=== PATIENT | male | born 1950 | race Caucasian/White ===

== ENCOUNTER 2022-12-15 14:42 | Inpatient (IN) ==
[2022-12-15] MEDS ORDERED: LIDOCAINE 1% 20 ML VIAL SQ ONE (14:43)
[2022-12-15] MEDS ORDERED: IOPAMIDOL 100 ML BOTTLE IV ONE (14:43)
[2022-12-15] MEDS ORDERED: ONDANSETRON 4 MG/2 ML VIAL IV ONE (14:54)
[2022-12-15] MEDS ORDERED: morphine 4 MG/ML VIAL IV ONE ×2 (14:54→16:03)
--- NOTE | 2022-12-15 15:05 | Emergency Department Note ---
Trauma HPI General Chief Complaint: Trauma Stated Complaint: Fall Time Seen by Provider: 12/15/22 14:47 Source: patient Mode of arrival: wheelchair Limitations: no limitations History of Present Illness HPI Narrative: Narrative: The patient presents after tripping and falling down approximately 3 steps. He said he struck the right side of his head on the carpet. He did not lose consciousness. He is not on blood thinners. He denies visual problems or vomiting. He denies weakness or numbness. He denies neck or back pain. He did strike the lower right side of his chest. He complains of right-sided chest wall pain and difficulty breathing. He denies any abdominal or extremity injury. He was in his normal state of health prior to the fall. He denies any presyncope. Related Data Home Medications Medication Instructions Recorded Confirmed amlodipine 10 mg tablet 10 mg PO QDAY 09/07/18 07/23/22 atorvastatin 20 mg tablet 20 mg PO QDAY 09/07/18 07/23/22 benazepril 10 mg tablet 10 mg PO HS 09/07/18 07/23/22 duloxetine 30 mg capsule,delayed 60 mg PO HS 03/29/20 07/23/22 release famotidine 20 mg tablet 20 mg PO DAILYP PRN Heartburn 03/29/20 07/23/22 metoprolol tartrate 50 mg tablet 50 mg PO BID 03/29/20 07/23/22 nortriptyline 75 mg capsule 75 mg PO HS 03/29/20 07/23/22 tamsulosin 0.4 mg capsule 0.4 mg PO DAILY 03/29/20 07/23/22 tramadol 50 mg tablet 50 mg PO TIDP PRN Pain 06/05/20 07/23/22 Previous Rx's Medication Instructions Recorded hydrocodone 5 mg-acetaminophen 325 1 tab PO Q8H PRN pain #10 tabs 07/24/22 mg tablet ondansetron 4 mg disintegrating 4 mg PO Q8H PRN nausea and 07/24/22 tablet vomiting #14 tabs hydrocodone 7.5 mg-acetaminophen 1 tab PO Q6H PRN pain #10 tabs 08/20/22 325 mg tablet metronidazole 500 mg tablet 500 mg PO TID #30 tabs 08/20/22 sulfamethoxazole 800 1 tab PO BID #20 tabs 10/12/22 mg-trimethoprim 160 mg tablet (Bactrim DS) ciprofloxacin HCl 500 mg tablet 500 mg PO BID #14 tabs 10/15/22 metronidazole 500 mg tablet 500 mg PO TID #21 tabs 10/15/22 Allergies Allergy/AdvReac Type Severity Reaction Status Date / Time Jkdlerp-ZOH-NjU Reductase AdvReac Mild Cramping Verified 08/20/22 07:42 Inhibitor of the [Kbgmkja-Jsd-Wnx Reductase Muscles Inhibitor] Review of Systems ROS ROS Narrative: Narrative: All systems ED: reviewed and negative except as stated. PFSH Narrative Patient History Narrative: Narrative: Medical/Surgical/Family History All Active Problems (Updated 12/15/22 @ 16:06 by Kaiden Shaw MD) Status post total hip replacement, right (Acute) Diverticulitis (Acute) Sigmoid diverticulitis (Acute) Pneumothorax on right (Acute) Fall (Acute) Closed head injury (Acute) Contusion of right chest wall (Acute) H/O inguinal hernia repair (Acute) H/O umbilical hernia repair (Acute) Hyperlipidemia (Acute) Hypertension (Acute) Testicular/scrotal pain (Acute) Right groin pain (Acute) Urinary hesitancy (Acute) Urinary frequency (Acute) Social History Smoking Status: Never smoker Alcohol Intake Frequency: 0-2 drinks per day Exam Narrative Narrative: Narrative: General Limitations: no limitations General appearance: Present alert; Absent in no apparent distress (Mild distress due to pain) Head Head: Absent atraumatic (Abrasion on the right parietal area) or normal inspection Eye Eye: Present normal appearance, PERRL and EOMI ENT ENT: Present normal exam (No intraoral trauma) and mucous membranes moist; Absent other (No nasal septal hematoma. No facial bone tenderness) Neck Neck: Present normal inspection, full ROM and trachea midline; Absent tenderness Chest Chest: Present normal inspection, symmetric chest wall rise and tenderness (Palpation of the right lower anterior chest wall does elicit discomfort) Respiratory Respiratory: Absent normal lung sounds bilaterally (Lung sounds are present on the right but diminished when compared to the left) or respiratory distress Cardiovascular Cardiovascular: Present regular rate, normal rhythm and other (+2 pulses all 4 extremities) Adbominal Abdominal: Present soft, tenderness (Mild tenderness in the right upper quadrant without rebound or guarding) and normal bowel sounds; Absent distention, guarding or rebound Extremities Extremities: Present normal inspection and full ROM; Absent tenderness Back Back: Present full ROM; Absent tenderness (No T or L-spine point tenderness), CVA tenderness (R) or CVA tenderness (L) Neurological Neurological: Present alert, oriented X3, CN II-XII intact and other (GCS 15); Absent motor sensory deficit Psychiatric Psychiatric: Present normal affect and normal mood Skin Skin: Present warm (WNL), dry and other (Abrasion as mentioned above) Course Consultations Consultation #1: I spoke to the general surgeon, Dr. Guo. He asked me to ask radiology if they could place a small catheter as opposed as placing a large chest tube. Time: 15:55 Consultation #2: I spoke to Dr. Neves, the radiologist. He is amenable to placing a small catheter. Time: 16:00 Vital Signs Vital signs: Vital Signs Temperature 98.0 F 12/15/22 14:43 Pulse Rate 72 12/15/22 14:43 Respiratory Rate 16 12/15/22 14:43 Blood Pressure 133/96 12/15/22 14:43 Pulse Oximetry (%) 100 12/15/22 14:43 Oxygen Delivery Method Room Air 12/15/22 14:43 Temperature 98.0 F 12/15/22 14:43 Pulse Rate 75 12/15/22 16:46 Respiratory Rate 19 12/15/22 16:46 Blood Pressure 110/78 12/15/22 16:46 Pulse Oximetry (%) 98 12/15/22 16:46 Oxygen Delivery Method Nasal Cannula 12/15/22 15:34 Oxygen Flow Rate (L/min) 2 12/15/22 15:34 [facility] Narrative Medical decision making narrative: Narrative: The patient presents after mechanical fall in which he struck his head and injured the right side of his chest/abdomen. Concern with the diminished breath sounds on the right is the possibility of a traumatic pneumothorax. Patient is satting at 98 to 100% on room air while I am in the room. He does appear to be in moderate distress due to the pain. Plan to image the head, cervical spine, chest abdomen pelvis. We will obtain appropriate trauma labs and medicate for pain. Bedside E-FAST performed by myself showed no pericardial effusion, no free fluid in the abdomen, but a concern of a possible right-sided pneumothorax with no adequate lung sliding appreciated when compared to the left Lab Data Labs: Lab Results 12/15/22 12/15/22 12/15/22 Range/Units 15:00 15:00 15:00 POC Hct (41-55) PT 13.3 (11.9-14.5) sec INR 1.0 (0.9-1.1) APTT 31.6 (20.0-37.0) sec POC Sodium (133-145) POC Potassium (3.3-5.1) POC Chloride (96-108) POC Total CO2 (22-30) POC BUN (6-20) POC Creatinine (0.6-1.2) POC Glucose (70-105) POC WB Ioniz Calcium (1.16-1.32) Total Bilirubin 0.6 (0.1-1.0) mg/dL Direct Bilirubin < 0.2 (0-0.3) mg/dL AST 27 (<40) U/L ALT 24 (<40) U/L Alkaline Phosphatase 60 (39-117) U/L Total Protein 6.7 (5.9-8.4) gm/dL Albumin 4.5 (3.2-5.2) gm/dL Globulin 2.2 (2.2-3.7) gm/dL Lipase 17 (7-60) U/L Ethyl Alcohol mg/dL < 10.0 mg/dL Ethyl Alcohol g/dL < 0.010 (<0.010) gm/dL 12/15/22 Range/Units 15:03 POC Hct 42.0 (41-55) PT (11.9-14.5) sec INR (0.9-1.1) APTT (20.0-37.0) sec POC Sodium 137 (133-145) POC Potassium 4.9 (3.3-5.1) POC Chloride 101 (96-108) POC Total CO2 28.0 (22-30) POC BUN 15 (6-20) POC Creatinine 1.3 H (0.6-1.2) POC Glucose 105 (70-105) POC WB Ioniz Calcium 1.09 L (1.16-1.32) Total Bilirubin (0.1-1.0) mg/dL Direct Bilirubin (0-0.3) mg/dL AST (<40) U/L ALT (<40) U/L Alkaline Phosphatase (39-117) U/L Total Protein (5.9-8.4) gm/dL Albumin (3.2-5.2) gm/dL Globulin (2.2-3.7) gm/dL Lipase (7-60) U/L Ethyl Alcohol mg/dL mg/dL Ethyl Alcohol g/dL (<0.010) gm/dL Discharge Plan Patient/Caregiver Discharge Instructions Pt seen by RESOURCE SPECIALIST TEACHER/PA only: No Clinical Impression: Pneumothorax on right Fall Qualifiers: Encounter type: initial encounter Qualified Code(s): W19.XXXA - Unspecified fall, initial encounter Closed head injury Qualifiers: Encounter type: initial encounter Qualified Code(s): S09.90XA - Unspecified injury of head, initial encounter Contusion of right chest wall Qualifiers: Encounter type: initial encounter Qualified Code(s): S20.211A - Contusion of right front wall of thorax, initial encounter Patient Disposition: Xfer As Inpt ([facility]) Condition: Fair Follow up with: Jg Casiano MD [Primary Care Provider] - Prescriptions: No Action amlodipine 10 mg tablet 10 mg PO QDAY benazepril 10 mg tablet 10 mg PO HS atorvastatin 20 mg tablet 20 mg PO QDAY famotidine 20 MG tablet 20 mg PO DAILYP PRN (Reason: Heartburn) tamsulosin 0.4 MG capsule 0.4 mg PO DAILY nortriptyline 75 MG capsule 75 mg PO HS metoprolol tartrate 50 MG tablet 50 mg PO BID duloxetine 30 MG capsule 60 mg PO HS tramadol 50 mg Tablet 50 mg PO TIDP PRN (Reason: Pain) hydrocodone-acetaminophen 5-325 mg tablet 1 tab PO Q8H PRN (Reason: pain) Qty: 10 0RF ondansetron 4 mg tablet,disintegrating 4 mg PO Q8H PRN (Reason: nausea and vomiting) Qty: 14 0RF sulfamethoxazole-trimethoprim [Bactrim DS] 800-160 mg tablet 1 tab PO BID Qty: 20 0RF metronidazole 500 mg tablet 500 mg PO TID Qty: 30 0RF hydrocodone-acetaminophen 7.5-325 mg tablet 1 tab PO Q6H PRN (Reason: pain) Qty: 10 0RF Rx Instructions: 1 p.o. q 4-6 prn pain metronidazole 500 mg tablet 500 mg PO TID Qty: 21 0RF ciprofloxacin HCl 500 mg tablet 500 mg PO BID Qty: 14 0RF
[2022-12-15 15:06] LABS: POC Calcium, Ionized 1.09 (1.16-1.32); POC Creatinine 1.3 (0.6-1.2); POC Potassium 4.9 (3.3-5.1)
--- NOTE | 2022-12-15 15:35 | Cat Scan Report ---
INDICATION: fALL COMPARISON: Previous CT scan dated 04/21/2012 TECHNIQUE: Axial thin section images through the cervical spine. Sagittally and coronally reformatted images. The exam was performed using radiation dose optimization techniques including, but not limited to, automated exposure control, adjustment of the mA and/or kV according to patient size and use of iterative reconstruction technique. FINDINGS: Vertebral bodies, spinous processes:This patient has a history of Jamal fracture. There is a fracture of the anterior C1 ring, to the right of midline. Right lamina is also fractured. Patient has undergone previous posterior spinal fusion at C1-2 with bilateral wires. These wires are intact. 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 No acute cervical spine fracture. Cervical vertebral bodies are otherwise negative. Spinous processes are negative. There is a wedging deformity of the C5 vertebral body with mild reversal of normal cervical lordosis. This is essentially unchanged. Odontoid process is intact. No atlantoaxial subluxation Facets:No perched or locked facet. No facet complex fracture. Disc spaces:There is severe degenerative disc disease at C3-4, C4-5, C5-6, C6-7. Temporal bones:No basilar skull fracture. There is sclerosis of the left mastoid sinuses consistent with chronic sinusitis Cervical soft tissues:Negative. No prevertebral soft tissue swelling. No focal soft tissue mass or acute abnormality Lung apices:Small right apical pneumothorax. Chest CT scan is pending IMPRESSION: 1. Ununited Jamal fracture, unchanged since 04/21/2012. Interval posterior spinal fusion 2. Severe multilevel degenerative disc disease. Multilevel degenerative facet arthropathy 3. No acute cervical spine fracture 4. Small right apical pneumothorax, chest CT scan is pending Interpreted and Authenticated by: Dev Neves 12/15/22
--- NOTE | 2022-12-15 15:37 | Cat Scan Report ---
INDICATION: fall COMPARISON: Previous brain CT scan dated 04/21/2012 TECHNIQUE: Axial noncontrast-enhanced images through the brain. Sagittally and coronally reformatted images. FINDINGS: Cerebral hemispheres:Negative. No intra-axial abnormality. No intra-axial hematoma. No localized mass effect.Brain volume is within normal limits for age. Periventricular white matter is negative without significant attenuation abnormality. Brainstem and cerebellum:No intra-axial abnormality Extra-axial:No acute hemorrhage. No subdural or epidural hematoma. No subarachnoid hemorrhage. Basilar cisterns are normal Calvarial:No calvarial fracture. No lytic lesion Temporal bones are negative. There is sclerosis of the left mastoid sinuses consistent with chronic sinusitis Soft tissue, orbits, sinuses:Orbits and visualized facial soft tissues and paranasal sinuses are negative IMPRESSION: 1. No acute intracranial hemorrhage 2. No interval change since 04/21/2012 The exam was performed using radiation dose optimization techniques including, but not limited to, automated exposure control, adjustment of the mA and/or kV according to patient size and use of iterative reconstruction technique. Interpreted and Authenticated by: Dev Neves 12/15/22
--- NOTE | 2022-12-15 15:52 | Cat Scan Report ---
INDICATION: fall COMPARISON: Previous abdominal and pelvic CT scan dated 10/15/2022, 08/20/2022 TECHNIQUE: Axial images were obtained through the chest,abdomen and pelvis. Sagittally and coronally reformatted images. 80ml Isovue 370 injected intravenously. FINDINGS: Chest CT: Lungs:There is a moderate right pneumothorax. No right pulmonary parenchymal mass or consolidation identified. There is mild density most consistent with volume loss. Left lung is negative. No pulmonary parenchymal consolidation or contusion. Mediastinum:No pathologic mediastinal adenopathy. No hilar mass. Thoracic aorta is normal without aneurysmal dilatation Heart:No significant cardiomegaly. No pericardial effusion Pleura:There is a moderate right pneumothorax. There is no significant hemothorax Axilla, supraclavicular regions, chest wall:No pathologic axillary or supraclavicular adenopathy Musculoskeletal:No detectable acute rib fractures. There is no right rib fractures identified. There are nonacute healed left rib fractures. Thoracic spine is negative. Sternum is negative. Patient has undergone previous bilateral reverse shoulder arthroplasty Abdomen/Pelvis: Liver:Negative liver. No focal intrahepatic mass. Liver contour is smooth. There is no ascites. No hepatic laceration. No perihepatic hemorrhage Gallbladder, bilary:No calcified gallstones. No gallbladder wall thickening or pericholecystic fluid. No dilated bile ducts Spleen:No splenic injury. No perisplenic hemorrhage. No focal abnormality Pancreas:No pancreatic mass. No peripancreatic abnormality Adrenal glands:Negative Kidneys,ureters,bladder:No perinephric hemorrhage. No evidence for renal injury. No solid or cystic mass. There is no hydronephrosis No hydroureter. No ureteral calculus. No bladder stone. No detectable bladder mass. There is no rupture bladder. Gastrointestinal:No detectable colonic mass. There is prominent sigmoid diverticulosis without evidence for diverticulitis. Negative small bowel. No mechanical small bowel obstruction. No bowel wall thickening. No focal abnormality. Negative stomach and duodenum. No focal abnormality. Appendix: The appendix is not well visualized. No evidence for appendicitis Vascular:There is calcification of the abdominal aorta. No abdominal aortic aneurysm. Origins of the celiac trunk and superior mesenteric artery are negative. Lymphatic:No pathologic retroperitoneal or mesenteric adenopathy Mesentery, peritoneum:No free intraperitoneal fluid. No intra-abdominal abscess. No hemoperitoneum or pneumoperitoneum Reproductive:Prostate is not well visualized due to beam hardening artifact from bilateral prosthetic hips Musculoskeletal:No lumbar compression fractures. There is multilevel degenerative disc disease. Transverse processes are negative. Sacrum and pelvis are negative. Bilateral total hip arthroplasty There is no anterior abdominal wall or inguinal hernia IMPRESSION: 1. Moderate right pneumothorax. No right rib fracture identified 2. No significant hemothorax 3. No intra-abdominal solid organ injury. No hemoperitoneum or pneumoperitoneum 4. Nonacute healed left rib fractures 5. Bilateral reverse shoulder arthroplasty. Bilateral total hip arthroplasty 6. Multilevel degenerative disc disease. No acute fracture The exam was performed using radiation dose optimization techniques including, but not limited to, automated exposure control, adjustment of the mA and/or kV according to patient size and use of iterative reconstruction technique. Interpreted and Authenticated by: Dev Neves 12/15/22
[2022-12-15 16:09] LABS: Partial Thromboplastin Time 31.6 sec (20.0-37.0); Prothrombin Time 13.3 sec (11.9-14.5)
[2022-12-15 16:19] LABS: Alcohol, Blood < 10.0 mg/dL; Alcohol,Blood < 0.010 gm/dL (<0.010)
[2022-12-15 16:23] LABS: ALT/SGPT 24 U/L (<40); AST/SGOT 27 U/L (<40); Albumin 4.5 gm/dL (3.2-5.2); Alkaline Phosphatase 60 U/L (39-117); Bilirubin,Direct < 0.2 mg/dL (0-0.3); Bilirubin,Total 0.6 mg/dL (0.1-1.0); Globulin 2.2 gm/dL (2.2-3.7)
--- NOTE | 2022-12-15 17:55 | XRay Report ---
INDICATION: POST CHEST TUBE TECHNIQUE: Informed consent was obtained. Discussed the procedure as well as potential risks and complications including risk of bleeding and infection. The right anterior interspace at T2-3 was localized. Routine Betadine skin cleansing. 1% lidocaine injected subcutaneously and deep. A 5 Trinid[place] pigtail catheter was placed within the pleural space. Pneumothorax was manually evacuated. Catheter was affixed to the skin with a suture and a Heimlich valve was attached. Postprocedure chest x-ray demonstrates no definite pneumothorax. Patient will be admitted. We will evaluate the patient tomorrow and may remove the chest tube if appropriate. COMPARISON: Chest CT scan dated 12/15/2021 FINDINGS: Postprocedure chest x-ray demonstrates the pigtail catheter tip directed toward the apex. There is no demonstrable pneumothorax on upright PA and lateral chest x-ray. IMPRESSION: 1. Fluoroscopic guided small-caliber chest tube placement 2. No pneumothorax identified on postprocedure chest x-ray Interpreted and Authenticated by: Dev Nvees 12/15/22
[2022-12-15] MEDS ORDERED: morphine 4 MG/ML VIAL IV PRN (17:57)
[2022-12-15] MEDS ORDERED: 0.9 % SODIUM CHLORIDE 1,000 ML IV ONE (17:57)
[2022-12-15] MEDS ORDERED: ONDANSETRON 4 MG/2 ML VIAL IV PRN (17:57)
--- NOTE | 2022-12-15 18:45 | General Surg History&Physical ---
HPI History of Present Illness Patient information: Note initiated : 12/15/22 at 6:45 pm Service Date, if different from initiated Date: [] Patient: Adria Melgar 72 y/o M admitted on for Fall. Chief Complaint: [] History of present illness: Mr. Melgar is a 72 year old M [facility] All Active Problems (Updated 12/15/22 @ 16:06 by Kaiden Shaw MD) Status post total hip replacement, right (Acute) Diverticulitis (Acute) Sigmoid diverticulitis (Acute) Pneumothorax on right (Acute) Fall (Acute) Closed head injury (Acute) Contusion of right chest wall (Acute) H/O inguinal hernia repair (Acute) H/O umbilical hernia repair (Acute) Hyperlipidemia (Acute) Hypertension (Acute) Testicular/scrotal pain (Acute) Right groin pain (Acute) Urinary hesitancy (Acute) Urinary frequency (Acute) Social History (Updated 09/09/18 @ 08:57 by Marilu Alex DO) smoking status: Never smoker alcohol intake frequency: 0-2 drinks per day MEDS/ALLERGIES Home Medications and Allergies Home Medications Medication Instructions Recorded Confirmed Type amlodipine 10 mg tablet 10 mg PO QDAY 09/07/18 07/23/22 History atorvastatin 20 mg tablet 20 mg PO QDAY 09/07/18 07/23/22 History benazepril 10 mg tablet 10 mg PO HS 09/07/18 07/23/22 History duloxetine 30 mg capsule,delayed 60 mg PO HS 03/29/20 07/23/22 History release famotidine 20 mg tablet 20 mg PO DAILYP PRN Heartburn 03/29/20 07/23/22 History metoprolol tartrate 50 mg tablet 50 mg PO BID 03/29/20 07/23/22 History nortriptyline 75 mg capsule 75 mg PO HS 03/29/20 07/23/22 History tamsulosin 0.4 mg capsule 0.4 mg PO DAILY 03/29/20 07/23/22 History tramadol 50 mg tablet 50 mg PO TIDP PRN Pain 06/05/20 07/23/22 History hydrocodone 5 mg-acetaminophen 325 1 tab PO Q8H PRN pain #10 tabs 07/24/22 Rx mg tablet ondansetron 4 mg disintegrating 4 mg PO Q8H PRN nausea and 07/24/22 Rx tablet vomiting #14 tabs hydrocodone 7.5 mg-acetaminophen 1 tab PO Q6H PRN pain #10 tabs 08/20/22 Rx 325 mg tablet metronidazole 500 mg tablet 500 mg PO TID #30 tabs 08/20/22 Rx sulfamethoxazole 800 1 tab PO BID #20 tabs 08/20/22 Rx mg-trimethoprim 160 mg tablet (Bactrim DS) ciprofloxacin HCl 500 mg tablet 500 mg PO BID #14 tabs 10/15/22 Rx metronidazole 500 mg tablet 500 mg PO TID #21 tabs 10/15/22 Rx Allergies Allergy/AdvReac Type Severity Reaction Status Date / Time Aijqgek-SKK-ZbU Reductase AdvReac Mild Cramping Verified 08/20/22 07:42 Inhibitor of the [Xkauaqn-Cjs-Adp Reductase Muscles Inhibitor] Physical Examination Vital Signs Vital signs: Temp Pulse Resp BP Pulse Ox O2 Del Method O2 Flow Rate 98.0 F 88 28 H 107/72 98 Nasal Cannula 2 12/15/22 14:43 12/15/22 18:25 12/15/22 18:25 12/15/22 18:16 12/15/22 18:25 12/15/22 15:34 12/15/22 15:34 Results Labs Labs: Abnormal lab results 12/15/22 Range/Units 15:03 POC Creatinine 1.3 H (0.6-1.2) POC WB Ioniz Calcium 1.09 L (1.16-1.32) Diabetes panel 12/15/22 Range/Units 15:00 AST 27 (<40) U/L ALT 24 (<40) U/L Alkaline Phosphatase 60 (39-117) U/L Total Protein 6.7 (5.9-8.4) gm/dL Albumin 4.5 (3.2-5.2) gm/dL Calcium panel 12/15/22 Range/Units 15:00 Albumin 4.5 (3.2-5.2) gm/dL Adrenal panel 12/15/22 Range/Units 15:00 Total Bilirubin 0.6 (0.1-1.0) mg/dL AST 27 (<40) U/L ALT 24 (<40) U/L Alkaline Phosphatase 60 (39-117) U/L Total Protein 6.7 (5.9-8.4) gm/dL Albumin 4.5 (3.2-5.2) gm/dL All other labs normal. A/P Time Spent With Patient Time: Total time spent is greater than 50% in coordination of care (as documented) at patient's floor/unit and/or counseling patient:
[2022-12-15] MEDS ORDERED: HYDROmorphone 1 MG/ML SYRINGE IV ONE (19:04)
[2022-12-15] MEDS: ACETAMINOPHEN 1,000 MG/100 ML BAG IV SCH (19:34)
[2022-12-15] MEDS ORDERED: FAMOTIDINE 20 MG TABLET PO PRN (20:32)
[2022-12-15] MEDS ORDERED: BENAZEPRIL 10 MG TABLET PO SCH (21:00)
[2022-12-15] MEDS ORDERED: DULoxetine 30 MG CAPSULE PO SCH (21:00)
[2022-12-15] MEDS ORDERED: NORTRIPTYLINE 75 MG PO SCH (21:00)
[2022-12-15] MEDS: HYDROmorphone 1 MG/ML SYRINGE IV PRN ×2 (21:20→22:48)
--- NOTE | 2022-12-15 21:38 | XRay Report ---
INDICATION: f/u pneumothorax TECHNIQUE: AP portable upright chest x-ray COMPARISON: Previous post chest tube chest x-ray dated 12/15/2022 FINDINGS: Small-caliber right-sided chest tube is unchanged. There is no pneumothorax identified. IMPRESSION: 1. No right pneumothorax identified 2. No interval change Interpreted and Authenticated by: Dev Neves 12/15/22
[2022-12-15 21:39] LABS: Amphetamine Screen,Urine None detected; Barbiturate Screen,Urine None detected; Benzodiazepines Screen,Urine None detected; Cannabinoid Screen,Urine None detected; Cocaine Screen,Urine None detected; Opiate Screen,Urine Suspect Positive; Oxycodone, Urine Screen None detected; Phencyclidine Screen,Urine None detected
[2022-12-16] MEDS: HYDROmorphone 1 MG/ML SYRINGE IV PRN ×6 (03:03→19:41)
[2022-12-16] MEDS: ACETAMINOPHEN 1,000 MG/100 ML BAG IV SCH ×3 (03:13→12:18)
--- NOTE | 2022-12-16 06:05 | XRay Report ---
INDICATION: f/u pneumothorax TECHNIQUE: AP portable semiupright chest x-ray COMPARISON: Previous chest x-ray dated 12/15/2022 FINDINGS: No change in position a small caliber right sided chest tube. No detectable right pneumothorax. There is a rounded density at the right lung base. CT scan demonstrates a fat-containing abnormality at the left costophrenic angle. Appearance is consistent with herniated mesenteric fat. This is considered benign. There are healed left-sided rib fractures. No detectable right rib fracture. IMPRESSION: 1. No change in small caliber right sided chest tube. No detectable pneumothorax 2. No acute abnormality Interpreted and Authenticated by: Dev Neves 12/16/22
[2022-12-16] MEDS ORDERED: amLODIPine 10 MG TABLET PO SCH (09:00)
[2022-12-16] MEDS ORDERED: TAMSULOSIN 0.4 MG CAPSULE PO SCH (09:00)
--- NOTE | 2022-12-16 13:38 | General Surgery Progress Note ---
SUBJECTIVE Subjective Patient information: Note initiated : 12/16/22 at 1:32 pm Service Date, if different from initiated Date: [] Patient: Adria Melgar 72 y/o M admitted on 12/15/22 for Fall. Chief Complaint: [] Principal diagnosis: Traumatic right pneumothorax Interval history: Patient states that he feels better but he has moderate severe pain. He has significant pleuritic type chest pain. He denies shortness of breath. He does not complain of headache and he does not complain of soreness elsewhere in his body. He does not have any new bruises. Chest x-ray shows full expansion of his lung without any infiltrate. Constitutional Vitals: Vital Signs Temp Pulse Resp BP Pulse Ox O2 Del Method O2 Flow Rate 97.4 F 65 20 117/62 96 Room Air 2 12/16/22 13:15 12/16/22 13:15 12/16/22 13:15 12/16/22 13:15 12/16/22 13:15 12/16/22 13:15 12/15/22 15:34 Period Temp Pulse Resp BP Sys/Fowler Pulse Ox O2 Del Method O2 Flow Rate Last 24 Hr 97.4 F-98.2 F 61-88 10-28 89-133/62-97 85-100 Nasal Cannula- Room Air 2 Intake and Output 12/16/22 12/16/22 12/16/22 03:59 11:59 19:59 Intake Total 1252 1400 100 Output Total 325 1075 300 Balance 927 325 -200 Weight 185 lb 14.4 oz Intake & Output: Intake & Output 12/16/22 12/16/22 12/16/22 03:59 11:59 19:59 Intake Total 1252 1400 100 Output Total 325 1075 300 Balance 927 325 -200 Weight 185 lb 14.4 oz Intake: IV 1027 200 100 Sodium Chloride 0.9% 1,000 ml @ 927 100 mls/hr IV .Q10H ONE Rx#: [id number] Oral 225 1200 Output: Void Amount 325 1075 300 Other: Meal Breakfast Percent of Meal Consumed 100% Urine Appearance Clear Clear Clear Urine Color Yellow Yellow Bright Yellow Urine Odor Normal Normal Head Head exam: Present normocephalic Additional comments: Area of bruising on the right forehead is unchanged; there is no hematoma or increased ecchymosis Eye Additional comments: Pupils are equal and reactive bilaterally ENT Additional comments: No drainage from ears Neck Neck exam: Present full ROM and normal inspection Respiratory Additional comments: Discomfort with deep breathing but excellent breath sounds bilaterally throughou t all lung andersen; no pleural rub Cardiovascular Cardiovascular exam: Present normal rate and rhythm, RRR, +S1 and +S2; Absent JVD or rubs GI/Abdominal GI/Abdominal exam: Present normal bowel sounds and soft; Absent distended or tenderness Extremities Exam Extremities exam: Present full ROM, normal inspection and neurovascular intact; Absent calf tenderness or tenderness Back Exam Back exam: Present normal inspection; Absent CVA tenderness (L), CVA tenderness (R) or muscle spasm Neurological Exam Neurological exam: Present normal gait and oriented X3; Absent motor sensory deficit Psychiatric Psychiatric exam: Present normal affect and normal mood A/P Assessment and plan (1) Pneumothorax on right: Status: Acute (2) Closed head injury: Status: Acute Qualifiers: Encounter type: initial encounter Qualified Code(s): S09.90XA - Unspecified injury of head, initial encounter (3) Contusion of right chest wall: Status: Acute Qualifiers: Encounter type: initial encounter Qualified Code(s): S20.211A - Contusion of right front wall of thorax, initial encounter Plan Increase activity off oxygen Check post exercise oxygen saturations Follow-up chest x-ray today Probable discharge home tomorrow if he remains stable Sepsis Sepsis Identified: No Time Spent With Patient Time: Total time spent is greater than 50% in coordination of care (as documented) at patient's floor/unit and/or counseling patient:
[2022-12-16] MEDS ORDERED: oxyCODONE HCL 5 MG TABLET PO PRN (13:47)
[2022-12-16] MEDS ORDERED: ONDANSETRON 4 MG/2 ML VIAL IV PRN (14:56)
[2022-12-16] MEDS: oxyCODONE HCL 5 MG TABLET PO PRN ×2 (18:07→21:57)
[2022-12-16] MEDS ORDERED: NORTRIPTYLINE 25 MG CAPSULE PO SCH ×2 (21:00)
[2022-12-16] MEDS ORDERED: LISINOPRIL 10 MG TABLET PO SCH (21:00)
[2022-12-16] MEDS ORDERED: LISINOPRIL 10 MG TABLET ONE (21:01)
[2022-12-16] MEDS: METOPROLOL TARTRATE 50 MG TABLET PO SCH (21:04)
[2022-12-16] MEDS: ACETAMINOPHEN 1,000 MG/100 ML BAG IV PRN (23:59)
[2022-12-17] MEDS: oxyCODONE HCL 5 MG TABLET PO PRN ×3 (03:48→15:50)
--- NOTE | 2022-12-17 06:28 | XRay Report ---
INDICATION: Follow-up right pneumothorax TECHNIQUE: AP portable semiupright chest x-ray COMPARISON: Previous chest x-rays dated 12/16/2022, 12/15/2022 FINDINGS: No change in position of small caliber right-sided chest tube. There is no detectable residual or recurrent right pneumothorax. The stopcock and obtain a follow-up chest x-ray in 1 hour. If the pneumothorax is not recurred the chest tube can be pulled. IMPRESSION: No change in small caliber right-sided chest tube position. No detectable right pneumothorax Interpreted and Authenticated by: Dev Neves 12/17/22
[2022-12-17] MEDS: ACETAMINOPHEN 1,000 MG/100 ML BAG IV PRN (07:44)
--- NOTE | 2022-12-17 08:02 | XRay Report ---
INDICATION: DO AT 0730 TECHNIQUE: AP portable upright chest x-ray COMPARISON: Multiple previous chest x-rays FINDINGS: The chest tube has been turned off for 1 hour. No evidence for recurrent right pneumothorax. Right-sided chest tube will be removed IMPRESSION: No recurrent pneumothorax demonstrated Interpreted and Authenticated by: Dev Neves 12/17/22
[2022-12-17] MEDS ORDERED: LIDOCAINE 1% IJ ONE (08:26)
[2022-12-17] MEDS ORDERED: amLODIPine 10 MG TABLET PO SCH (09:00)
[2022-12-17] MEDS ORDERED: TAMSULOSIN 0.4 MG CAPSULE PO SCH (09:00)
[2022-12-17] MEDS ORDERED: FAMOTIDINE 20 MG TABLET PO SCH (09:00)
[2022-12-17] MEDS ORDERED: buPROPion 150 MG TAB.XL.24H PO SCH (09:00)
[2022-12-17] MEDS ORDERED: DULoxetine 30 MG CAPSULE PO SCH (09:00)
[2022-12-17] MEDS: METOPROLOL TARTRATE 50 MG TABLET PO SCH (09:47)
[2022-12-17] MEDS ORDERED: FLU VACC QS2022-23(6MOS UP)/PF 60 MCG/0.5 ML SYRINGE IM ONE (10:00)
[2022-12-17] MEDS ORDERED: MAGNESIUM HYDROXIDE 30 ML ORAL.SUSP PO PRN (11:02)
[2022-12-17] MEDS: HYDROmorphone 1 MG/ML SYRINGE IV PRN (12:14)
--- NOTE | 2022-12-17 15:54 | Discharge Summary ---
Discharge Provider Provider IMPORTANT FOLLOW-UP INFORMATION FOR PCP: Patient information: Note initiated : 12/17/22 at 3:53 pm Service Date, if different from initiated Date: [] Patient: Adria Melgar 72 y/o M admitted on 12/15/22 for Fall. Chief Complaint: [] Date of admission: 12/15/22 19:59 Discharge date: 12/17/22 Primary care physician: Jg Casiano Admitting clinician: Dev Guo Attending physician on admission: Dev Guo Consults: 12/15/22 15:56 Consult to Physician [CONS] Stat Comment: Consulting Provider: Dev Guo Reason For Exam: Physician to Consult Attending physician on discharge: Dev Guo Discharging clinician: Dev Guo COURSE Hospital Course Hospital course: 72-year-old male who fell down his steps at home on the day of admission. He bumped his right chest and flank on a stairwell and his head hit the carpeted floor. He did not lose consciousness. He does complain of some tenderness of his left leg he has some pleuritic chest pain and shortness of breath. He had CT of the head which was unremarkable. Chest x-ray showed traumatic pneumothorax without evidence of rib fracture. Other bony changes noted unremarkable. Neck films were normal. Patient had a small Pleurx catheter placed by radiology and it was placed to a flutter valve. He has done well and his x-ray has been fully expanded over the past 2 days. The catheter was turned off earlier this morning and follow-up chest x-ray showed no evidence of pneumothorax so the catheter was removed. He has done well in the interim and though he had some pleuritic pain he has good breath sounds bilaterally. Patient is stable for discharge home. Discharge diagnosis: Right traumatic pneumothorax Secondary discharge diagnosis: Closed head trauma without concussion Soft tissue trauma without fracture Reason for admission: Pneumothorax and chest pain Procedures: None Pertinent studies/significant findings: None Complications: None Time Spent with Patient Time attestation: Total time spent providing and/or coordinating discharge services: Time spent: Less than 30 minutes Physical Examination Vital Signs Vital signs: Temp Pulse Resp BP Pulse Ox O2 Del Method O2 Flow Rate 97.9 F 62 20 128/82 97 Room Air 2 12/17/22 12:00 12/17/22 12:00 12/17/22 12:12/17/22 12:00 12/17/22 12:00 12/17/22 12:00 12/15/22 15:34 General physical appearance General physical exam: well developed, well nourished, moderate distress and moderate pain (Primarily of right-sided chest pain) Eyes Eye exam: PERRL and normal ocular movement ENT ENT exam: normal mucosa, no hearing loss and no congestion Head Head exam IM: Present atraumatic, normal inspection and normocephalic Neck Neck exam: no masses, no bruits, trachea midline, no lymphadenopathy and no venous distension Cardiovascular Cardiovascular exam IM: Present normal rate and rhythm, RRR, +S1 and +S2; Absent JVD Respiratory Respiratory exam: normal expansion (Splinting right chest with decreased breath sounds ) and clear to auscultation Abdomen Abdomen: Present soft and non tender Integumentary Integumentary: Present no rash, no growths and no abnormal pigmentation Neurologic Neurologic: Present normal coordination and normal sensation Musculoskeletal Musculoskeletal: Present normal gait and normal posture Psychiatric Psychiatric: Present oriented to time, oriented to person, oriented to place, speech is normal and memory intact Discharge Plan Patient/Caregiver Discharge Instructions Activity: increase activity as tolerated Diet: Regular Diet Instructions: Hydrocodone/Acetaminophen (By mouth), Methocarbamol (By mouth), Traumatic Pneumothorax (DC) Activity Restrictions/Additional Instructions: Get a chest X-Ray on January 13, please take the prescription with you. Increase activity as tolerated. May resume regular diet as tolerated. This discharge packet is provided to you to help keep you informed about your care. We want to ensure you get everything you need when you go home. You will also be receiving a call from us in a few days to follow up with you and see how you are doing since your discharge. This gives us a chance to listen to any concerns you maybe experiencing since you were discharged or any additional needs you may have, as well as providing us feedback on your care experience. We strive to always provide excellent care and thank you for your feedback and for choosing [facility]. Prescriptions: New hydrocodone-acetaminophen 10-325 mg tablet 1 tab PO Q4H PRN (Reason: Pain) Qty: 40 0RF methocarbamol 750 mg tablet 750 mg PO Q6HP PRN (Reason: Muscle Spasm) Qty: 90 0RF No Action amlodipine 10 mg tablet 10 mg PO QDAY benazepril 10 mg tablet 10 mg PO HS atorvastatin 20 mg tablet 20 mg PO HS famotidine 20 MG tablet 20 mg PO DAILYP PRN (Reason: Heartburn) tamsulosin 0.4 MG capsule 0.4 mg PO DAILY nortriptyline 75 MG capsule 75 mg PO HS metoprolol tartrate 50 MG tablet 50 mg PO BID duloxetine 30 MG capsule 60 mg PO HS tramadol 50 mg Tablet 50 mg PO TIDP PRN (Reason: Pain) bupropion HCl 300 mg tablet extended release 24 hr 300 mg PO QDAY Other Ambulatory Orders: XR chest 1V (Routine) Timeframe: 2 Weeks Facility: [facility] - Location: Radiology Ordered By: Dev Guo Prescription drug monitoring program results: PDMP not reviewed Follow Up Plan Follow up with: Jg Casiano MD [Primary Care Provider] - 12/22/22 (Keep your scheduled ap pointment.) Dev Guo MD [Physician] - 01/15/23 1:45 pm Patient Disposition: Home, Self-Care Prognosis: Good Rehab Potential: Serious I certify that the patient requires SNF services: No Overall status at discharge: patient is progressing back to baseline Discharge Orders: Discharge Order (Routine); Ordered 12/17/22 Ordered By: Dev Guo Pending Pending Pending: Resuscitation Status Resuscitate (Full Code) Diet Regular Diet Start ThuDec 16 1622 Amlodipine Besylate (Amlodipine 10 Mg Tablet) 10 mg PO DAILY [facility] Last Admin: 12/17/22 09:48 Dose: 10 mg Documented By: JERZY Bupropion HCl (Bupropion 150 Mg Tab.Xl.24h) 300 mg PO DAILY [facility] Last Admin: 12/17/22 09:47 Dose: 300 mg Documented By: JERZY Duloxetine HCl (Duloxetine 30 Mg Capsule) 60 mg PO DAILY [facility] Last Admin: 12/17/22 09:47 Dose: 60 mg Documented By: JERZY Famotidine (Famotidine 20 Mg Tablet) 20 mg PO DAILY [facility] Last Admin: 12/17/22 09:48 Dose: 20 mg Documented By: JERZY Hydromorphone HCl (Hydromorphone 1 Mg/Ml Syringe) 1 mg IV Q2HP PRN; Protocol PRN Reason: Per Pain Protocol Last Admin: 12/17/22 12:14 Dose: 1 mg Documented By: Admin: 12/16/22 19:41 Dose: 1 mg Documented By: Admin: 12/16/22 15:50 Dose: 1 mg Documented By: NIR Acetaminophen (Ofirmev) 1,000 mg in 100 mls @ 200 mls/hr IV Q6HP PRN; Protocol PRN Reason: PAIN/FEVER > 101 Last Infusion: 12/17/22 09:50 Dose: 0 mls/hr Documented By: Admin: 12/17/22 07:44 Dose: 200 mls/hr Documented By: Infusion: 12/17/22 00:30 Dose: 0 mls/hr Documented By: Admin: 12/16/22 23:59 Dose: 200 mls/hr Documented By: JAVY Lisinopril (Lisinopril 10 Mg Tablet) 10 mg PO [facility] Last Admin: 12/16/22 21:04 Dose: 10 mg Documented By: JAVY Magnesium Hydroxide (Magnesium Hydroxide 30 Ml Oral.Susp) 30 ml PO DAILYP PRN PRN Reason: Constipation Last Admin: 12/17/22 12:09 Dose: 30 ml Documented By: JERZY Metoprolol Tartrate (Metoprolol Tartrate 50 Mg Tablet) 50 mg PO BID [facility] Last Admin: 12/17/22 09:47 Dose: 50 mg Documented By: Admin: 12/16/22 21:04 Dose: 50 mg Documented By: JAVY Nortriptyline HCl (Nortriptyline 25 Mg Capsule) 75 mg PO [facility] Last Admin: 12/16/22 21:57 Dose: 75 mg Documented By: JAVY Oxycodone HCl (Oxycodone Hcl 5 Mg Tablet) 10 mg PO Q4HP PRN; Protocol PRN Reason: Per Pain Protocol Last Admin: 12/17/22 15:50 Dose: 10 mg Documented By: Admin: 12/17/22 09:48 Dose: 10 mg Documented By: Admin: 12/17/22 03:48 Dose: 10 mg Documented By: Admin: 12/16/22 21:57 Dose: 10 mg Documented By: Admin: 12/16/22 18:07 Dose: 10 mg Documented By: NIR Tamsulosin HCl (Tamsulosin 0.4 Mg Capsule) 0.4 mg PO DAILY [facility] Last Admin: 12/17/22 09:48 Dose: 0.4 mg Documented By: JERZY Shift Summary 12/17/22 05:05 Shift Summary by Domonique Joy Addendum entered by Domonique Joy RN 12/17/22 06:03: MD: Order for stool softeners? -per pt request Addendum entered by Domonique Joy RN 12/17/22 06:00: Last BM: 12/14- per pt Original Note: Primary Diagnosis: Fall/Pneumothorax Registration Status: IP Date of Surgery (if applicable): Not at this time Pertinent Medical Dx/Issue(s): HTN; Hyperlipidemia; Diverticulosis; Hx umbilical/inguinal hernia repairs and R hip replacement The patient presents to the ED after tripping and falling down approximately 3 steps. He said he struck the right side of his head on the carpet. He did not lose consciousness. He is not on blood thinners. He denies visual problems or vomiting. He denies weakness or numbness. He denies neck or back pain. He did strike the lower right side of his chest. He complains of right-sided chest wall pain and difficulty breathing. He denies any abdominal or extremity injury. He was in his normal state of health prior to the fall. He denies any pre-syncope. 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 Diet: Regular Med management (antibiotics, diuretics, BP): PO Lopressor, Nortriptyline, Lisinopril, Flomax, Cymbalta, Amlodipine, Bupropion, Pepcid Skin/Wound Care: Pigtail valve to R chest wall-Dressing CDI; Scattered abrasions to hands, arms, legs and face due to fall at home. Vital Signs with Trends: VSS on RA Pain management (acute vs. chronic): Ofirmev x1; Dilaudid x1 with moderate effect, Roxicodone x3 (2 tabs) minimal effect- Educated pt about the need to be able to control his pain with PO meds instead of using IV pain meds as he will not have IV access at home, Pt verbalized understanding. Lab/Rad (abnormal, trends): Chest XR scheduled for today Neuro/Mental Status: Alert and oriented x4, very talkative Urinary Elimination Device: Urinal Urinary output greater than 30mL/hr? Yes Date of last BM: Lines/Tubes: RAC SL Activity: Up SBA with GB- Ambulated 668 ft in the hallways this shift Recommendations/questions for MD: Discharge Plan (needs, disposition, etc): Possibly d/c home today with ? Initialized on 12/17/22 05:05 - END OF NOTE
[2022-12-23 11:12] LABS: Opiate Confirmation Positive
== END 2022-12-17 17:45 | disposition home or self-care (01) | DRG 201 ==
LOC: ED 14:42 → MEDSUR 19:59 → UNDODISIN 12-16 13:10
PROVIDERS: ADMIT Family Medicine Adult Medicine; ATTEND Family Medicine Adult Medicine